=== PATIENT | female | born 1960 | race Hispanic/Latino ===

== ENCOUNTER 2017-07-29 13:49 | Outpatient (CLI) | payer OTHER ==
--- NOTE | 2017-08-05 14:05 | MMO ---
BILATERAL DIGITAL SCREENING MAMMOGRAMS: Date: 07/29/17 This patient's mammogram was interpreted with the assistance of computer-aided detection. Comparison made with exam of 09/16/14. FINDINGS: There are scattered fibroglandular densities. No suspicious masses, calcifications, or architectural distortion seen. IMPRESSION: BIRADS 1: Negative Return to annual mammographic screening. POS: [facility]
== END 2017-07-29 13:50 | disposition home or self-care (01) ==
LOC: SCSMAMMO 13:49
PROVIDERS: ATTEND Nurse Practitioner Family
DX: Z12.31 Encounter for screening mammogram for malignant neoplasm of breast (principal)
CPT/HCPCS: 77067